=== PATIENT | female | born 1995 | race Caucasian/White ===

== ENCOUNTER 2025-08-18 08:50 | Inpatient (IN) | payer MEDICAID ==
[2025-08-18] VITALS (17 sets, daily range): BP systolic 102–133; BP diastolic 55–89; PULSE 68–101; RESP 17–31; TEMP 37.5856–37.6; O2SAT 97–99
[~2025-08-18] VITALS: Ht 167.6 cm; Wt 70.8 kg
[2025-08-18] MEDS: SODIUM CHLORIDE 0.9% (SEPSIS BOLUS) IV ONE (09:42)
[2025-08-18] MEDS: CEFTRIAXONE 1GM/50ML 50 ML IV ONE (09:42)
[2025-08-18] MEDS: ACETAMINOPHEN 500MG TABLET PO ONE (09:45)
[2025-08-18 09:58] LABS: BASOPHILS % 0.7 % (0.0-2.0); EOSINOPHILS % 0.1 % (0.0-5.0); HEMATOCRIT. 35.3 % (36.0-48.0); HEMOGLOBIN. 11.4 g/dL (12.0-16.0); LYMPHOCYTES % 10.4 % (20.0-50.0); MEAN PLATELET VOLUME 8.1 fl (7.4-10.4); MONOCYTES % 9.3 % (2.0-8.0); NEUTROPHILS % 79.5 % (40.0-76.0); PLATELET 194 x1000/uL (130-400); RED BLOOD CELL COUNT 4.55 mill/uL (4.2-5.4); RED CELL DISTRIBUTION WIDTH 14.9 % (11.6-14.6)
[2025-08-18 10:08] LABS: INR 1.1
[2025-08-18 10:11] LABS: CREATININE 0.8 mg/dL (0.6-1.0); UREA NITROGEN BLOOD 9 mg/dL (9-23)
[2025-08-18 10:12] LABS: ETHANOL BLOOD < 10 mg/dL (<10); HCG SCREEN NEGATIVE
[2025-08-18 10:13] LABS: ASPARTATE AMINOTRANSFERASE 19 IU/L (<34); BILIRUBIN DIRECT 0.2 mg/dL (<=3.0); BILIRUBIN TOTAL 0.6 mg/dL (0.1-1.0); PROTEIN TOTAL 7.4 g/dL (6.0-8.3)
[2025-08-18] MEDS: POTASSIUM CHLORIDE 20MEQ/PACKET PO SCH (11:00)
[2025-08-18 11:01] LABS: CLARITY URINE CLEAR (CLEAR); COLOR URINE YELLOW (YELLOW); GLUCOSE URINE NEGATIVE (NEGATIVE); KETONES URINE NEGATIVE (NEGATIVE); LEUKOCYTE ESTERASE URINE 2+ (NEGATIVE); NITRITE URINE NEGATIVE (NEGATIVE); OCCULT BLOOD URINE TRACE (NEGATIVE); PH URINE 6.5 (4.5-8.0); PROTEIN URINE NEGATIVE (NEGATIVE); SPECIFIC GRAVITY URINE 1.011 (1.005-1.030); UROBILINOGEN URINE 0.2 E.U./dL (0.2-1.0)
[2025-08-18] MEDS: IBUPROFEN 800MG TABLET PO ONE (11:01)
[2025-08-18 11:27] LABS: BACTERIA URINE 1+; RBC URINE 0-2 /hpf (0-2); SQUAMOUS EPITHELIAL CELL URINE 2+ /lpf (RARE/1+); YEAST URINE NONE SEEN
[2025-08-18 11:29] LABS: INFLUENZA TYPE A Presumptive Negative (Pres. Neg.); INFLUENZA TYPE B Presumptive Negative (Pres. Neg.)
[2025-08-18 11:30] LABS: RESPIRATORY SYNCYTIAL VIRUS Not Detected (Not Detectd)
[2025-08-18] MEDS ORDERED: SULF1TAB48 MT (12:31)
[2025-08-18] MEDS ORDERED: ACET-2708 MT (12:32)
[2025-08-18] MEDS: SODIUM CHLORIDE 0.9% 1,000 ML IV ONE (13:51)
[2025-08-18] MEDS: NOREPINEPHRINE 8MG/250ML PMX 250 ML IV ONE (15:18)
[2025-08-18] MEDS ORDERED: LACTATED RINGERS 1,000 ML IV SCH ×2 (16:00→16:45)
[2025-08-18 17:26] LABS: BASOPHILS % 0.6 % (0.0-2.0); EOSINOPHILS % 0.1 % (0.0-5.0); HEMATOCRIT. 31.9 % (36.0-48.0); HEMOGLOBIN. 10.1 g/dL (12.0-16.0); LYMPHOCYTES % 21.5 % (20.0-50.0); MEAN PLATELET VOLUME 8.2 fl (7.4-10.4); MONOCYTES % 7.0 % (2.0-8.0); NEUTROPHILS % 70.8 % (40.0-76.0); PLATELET 167 x1000/uL (130-400); RED BLOOD CELL COUNT 3.92 mill/uL (4.2-5.4); RED CELL DISTRIBUTION WIDTH 14.4 % (11.6-14.6)
[2025-08-18 17:45] LABS: T4 FREE 0.88 ng/dL (0.89-1.76)
[2025-08-18 21:27] LABS: PLATELET 182 x1000/uL (130-400); RED BLOOD CELL COUNT 3.93 mill/uL (4.2-5.4); RED CELL DISTRIBUTION WIDTH 14.5 % (11.6-14.6)
[2025-08-18] MEDS ORDERED: NOREPINEPHRINE 8MG/250ML PMX 250 ML IV PRN (21:28)
[2025-08-18 21:41] LABS: CREATININE 0.7 mg/dL (0.6-1.0)
[2025-08-18 21:42] LABS: UREA NITROGEN BLOOD 7 mg/dL (9-23)
[2025-08-18] MEDS: PIPERACILLIN/TAZO 3.375G/50ML 50 ML IV SCH (21:56)
[2025-08-18] MEDS: ACETAMINOPHEN 650MG/20.3ML UDC PO PRN (21:56)
[2025-08-18] MEDS: SODIUM CHLORIDE 0.9% 1,000 ML IV SCH (21:57)
[2025-08-19] VITALS (75 sets, daily range): BP systolic 74–123; BP diastolic 43–76; PULSE 63–91; RESP 16–28; TEMP 36.2–37.8; O2SAT 94–100
[2025-08-19 05:46] LABS: PLATELET 164 x1000/uL (130-400); RED BLOOD CELL COUNT 4.23 mill/uL (4.2-5.4); RED CELL DISTRIBUTION WIDTH 14.7 % (11.6-14.6)
[2025-08-19 05:56] LABS: CREATININE 0.5 mg/dL (0.6-1.0); UREA NITROGEN BLOOD < 5 mg/dL (9-23)
[2025-08-19] MEDS: PANTOPRAZOLE SODIUM 40 MG/VIAL IV SCH ×2 (08:45→09:30)
[2025-08-19] MEDS: CEFTRIAXONE 1GM/50ML 50 ML IV SCH (08:45)
[2025-08-19] MEDS: ENOXAPARIN 40MG/0.4ML SYR SUBCUT SCH (08:45)
[2025-08-19] MEDS ORDERED: SERT25TA74 PO (08:52)
[2025-08-19] MEDS ORDERED: ERGO1250 PO (08:52)
[2025-08-19] MEDS: SERTRALINE HCL 25MG TABLET PO SCH (09:39)
[2025-08-19] MEDS: ERGOCALCIFEROL 50000UNITS CAPSULE PO SCH (11:05)
[2025-08-19] MEDS: VANCOMYCIN 1.25GM/250ML IV SCH (11:18)
[2025-08-19] MEDS: ONDANSETRON HCL 4MG/2ML INJ IV PRN (11:26)
[2025-08-19] MEDS: LEVOTHYROXINE SODIUM 75MCG TABLET PO SCH (13:36)
[2025-08-19] MEDS: ACYCLOVIR INJ 500 MG in DEXT 5% WATER 100 ML IV SCH (18:20)
[2025-08-19] MEDS ORDERED: NALOXONE HCL 0.4MG/ML VIAL IV PRN (21:30)
[2025-08-19] MEDS ORDERED: ZOLPIDEM TARTRATE 5MG TABLET PO PRN (21:30)
[2025-08-19] MEDS: HYDROCODONE/ACETAMINOPHEN 5/325MG TABLET PO PRN (21:49)
[2025-08-19] MEDS: VANCOMYCIN 1GM/200ML PMX (BAXTER) IV SCH (22:10)
[2025-08-20] VITALS (9 sets, daily range): BP systolic 102–110; BP diastolic 51–61; PULSE 73–98; RESP 18–20; TEMP 36.1–39; O2SAT 97–100
[2025-08-20] MEDS: ACETAMINOPHEN 325MG TABLET PO PRN (04:37)
[2025-08-20 06:37] LABS: BASOPHILS % 0.6 % (0.0-2.0); EOSINOPHILS % 0.0 % (0.0-5.0); HEMATOCRIT. 31.1 % (36.0-48.0); HEMOGLOBIN. 10.2 g/dL (12.0-16.0); LYMPHOCYTES % 16.4 % (20.0-50.0); MEAN PLATELET VOLUME 8.8 fl (7.4-10.4); MONOCYTES % 9.4 % (2.0-8.0); NEUTROPHILS % 73.6 % (40.0-76.0); PLATELET 168 x1000/uL (130-400); RED BLOOD CELL COUNT 4.01 mill/uL (4.2-5.4); RED CELL DISTRIBUTION WIDTH 14.3 % (11.6-14.6)
[2025-08-20 06:42] LABS: CREATININE 0.6 mg/dL (0.6-1.0)
[2025-08-20 06:43] LABS: UREA NITROGEN BLOOD < 5 mg/dL (9-23)
[2025-08-20] MEDS: POTASSIUM CHLORIDE 20MEQ TABLET SR PO NR (13:34)
[2025-08-21] VITALS: BP 107/47; PULSE 79; RESP 18; TEMP 37.7; O2SAT 97
[2025-08-21 03:39] LABS: *AMPHETAMINES SCREEN URINE NEGATIVE (NEGATIVE); *BARBITURATES SCREEN URINE NEGATIVE (NEGATIVE); *BENZODIAZEPINES SCREEN URINE NEGATIVE (NEGATIVE); *COCAINE SCREEN URINE NEGATIVE (NEGATIVE)
[2025-08-21 03:40] LABS: CANNABINOID URINE SCREEN NEGATIVE (NEGATIVE); ECSTASY MDMA SCREEN URINE NEGATIVE (NEGATIVE); METHADONE URINE SCREEN NEGATIVE (NEGATIVE); OPIATES URINE SCREEN PRESUMPTIVE POSITIVE (NEGATIVE); PHENCYCLIDINE URINE SCREEN NEGATIVE (NEGATIVE)
[2025-08-21 04:00] VITALS: BP 113/65; PULSE 87; RESP 20; TEMP 37.3; O2SAT 98
[2025-08-21 08:00] VITALS: BP_SYST 100; BP_SYST 101; BP_DIAS 50; BP_DIAS 64; PULSE 65; RESP 18; RESP 20; TEMP 36.3; O2SAT 97; O2SAT 99
[2025-08-21 08:09] LABS: CREATININE 0.6 mg/dL (0.6-1.0); UREA NITROGEN BLOOD < 5 mg/dL (9-23)
[2025-08-21 12:00] VITALS: BP 101/64; PULSE 78; RESP 20; TEMP 36.5; O2SAT 99
[2025-08-21] MEDS ORDERED: NALOXONE HCL 0.4MG/ML VIAL IV PRN (13:45)
[2025-08-21] MEDS: POTASSIUM CHLORIDE 20MEQ TABLET SR PO NR (14:52)
[2025-08-21] MEDS: HYDROCODONE/ACETAMINOPHEN 10/325MG TABLET PO PRN (14:53)
[2025-08-21 16:00] VITALS: BP 105/52; PULSE 69; RESP 18; TEMP 36.8; O2SAT 98
[2025-08-21 20:00] VITALS: BP 110/49; PULSE 81; RESP 18; TEMP 37; O2SAT 98
[2025-08-22] VITALS (7 sets, daily range): BP systolic 98–110; BP diastolic 47–59; PULSE 67–90; RESP 18–20; TEMP 36.6–37.3; O2SAT 96–99
[2025-08-22 07:52] LABS: BASOPHILS % 0.8 % (0.0-2.0); EOSINOPHILS % 0.1 % (0.0-5.0); HEMATOCRIT. 30.8 % (36.0-48.0); HEMOGLOBIN. 9.9 g/dL (12.0-16.0); LYMPHOCYTES % 22.4 % (20.0-50.0); MEAN PLATELET VOLUME 8.2 fl (7.4-10.4); MONOCYTES % 7.8 % (2.0-8.0); NEUTROPHILS % 68.9 % (40.0-76.0); PLATELET 155 x1000/uL (130-400); RED BLOOD CELL COUNT 3.90 mill/uL (4.2-5.4); RED CELL DISTRIBUTION WIDTH 14.6 % (11.6-14.6)
[2025-08-22 08:06] LABS: CREATININE 0.6 mg/dL (0.6-1.0)
[2025-08-22 08:08] LABS: UREA NITROGEN BLOOD < 5 mg/dL (9-23)
[2025-08-22] MEDS ORDERED: LIDOCAINE HCL 1% 10 MG/ML 10ML VIAL ONE (09:14)
[2025-08-22 10:58] LABS: CSF TOTAL VOLUME 12.0 mL
[2025-08-22 12:10] LABS: CSF APPEARANCE CLEAR, COLORLESS (CLEAR)
[2025-08-22 13:45] LABS: GLUCOSE CSF 66 mg/dL (41-75)
[2025-08-23 04:00] VITALS: BP 105/52; PULSE 74; RESP 19; TEMP 37.4; O2SAT 96
[2025-08-23 08:00] VITALS: BP 95/50; PULSE 70; RESP 18; TEMP 36.5; O2SAT 95
[2025-08-23 11:55] VITALS: BP 93/40; PULSE 73; RESP 19; TEMP 36.5; O2SAT 98
[2025-08-23 16:12] VITALS: BP 99/65; PULSE 61; RESP 18; TEMP 36.5; O2SAT 98
[2025-08-23 20:16] VITALS: BP 98/50; PULSE 66; RESP 18; TEMP 36.7; O2SAT 98
[2025-08-23 23:47] VITALS: BP 105/57; PULSE 59; RESP 18; TEMP 36.4; O2SAT 98
[2025-08-24 04:26] VITALS: BP 118/74; PULSE 72; RESP 18; TEMP 36.5; O2SAT 98
[2025-08-24 08:00] VITALS: BP 101/58; PULSE 65; RESP 20; TEMP 36.4; O2SAT 97
[2025-08-24] MEDS: POLYETHYLENE GLYCOL 3350 (17GM) 1 DOSE PACK PO SCH (10:51)
[2025-08-24 12:00] VITALS: BP 97/48; PULSE 71; RESP 20; TEMP 36.7; O2SAT 95
[2025-08-24 12:37] LABS: BASOPHILS % 0.5 % (0.0-2.0); EOSINOPHILS % 0.5 % (0.0-5.0); HEMATOCRIT. 30.2 % (36.0-48.0); HEMOGLOBIN. 9.8 g/dL (12.0-16.0); LYMPHOCYTES % 25.7 % (20.0-50.0); MEAN PLATELET VOLUME 7.9 fl (7.4-10.4); MONOCYTES % 6.2 % (2.0-8.0); NEUTROPHILS % 67.1 % (40.0-76.0); PLATELET 209 x1000/uL (130-400); RED BLOOD CELL COUNT 3.91 mill/uL (4.2-5.4); RED CELL DISTRIBUTION WIDTH 14.8 % (11.6-14.6)
[2025-08-24 13:33] LABS: CREATININE 0.5 mg/dL (0.6-1.0); UREA NITROGEN BLOOD < 5 mg/dL (9-23)
[2025-08-24 16:00] VITALS: BP 93/43; PULSE 84; RESP 18; TEMP 36.7; O2SAT 97
[2025-08-24 20:00] VITALS: BP 99/55; PULSE 74; RESP 19; TEMP 36.8; O2SAT 98
[2025-08-24] MEDS: SENNOSIDES/DOCUSATE SOD 8.6/50MG TABLET PO SCH (20:48)
[2025-08-25] VITALS: BP 92/54; PULSE 60; RESP 20; TEMP 36.7; O2SAT 96
[2025-08-25 04:00] VITALS: BP 100/51; PULSE 63; RESP 19; TEMP 36.7; O2SAT 96
[2025-08-25 08:00] VITALS: BP 104/55; PULSE 58; RESP 20; TEMP 36.7; O2SAT 98
[2025-08-25 12:00] VITALS: BP 98/51; PULSE 68; RESP 18; TEMP 36.3; O2SAT 99
[2025-08-25] MEDS: ASPIRIN/ACETAMINOPHEN/CAFFEINE 250/250/65MG TABLET PO PRN (14:05)
[2025-08-25 16:00] VITALS: BP_SYST 102; BP_SYST 95; BP_DIAS 53; BP_DIAS 61; PULSE 61; PULSE 70; RESP 20; TEMP 36.7; TEMP 36.8; O2SAT 96; O2SAT 99
[2025-08-25 20:00] VITALS: BP 99/55; PULSE 66; RESP 18; TEMP 36.5; O2SAT 98
[2025-08-26] VITALS: BP 100/58; PULSE 63; RESP 18; TEMP 36.6; O2SAT 98
[2025-08-26 04:00] VITALS: BP 100/50; PULSE 68; RESP 18; TEMP 36.5; O2SAT 97
[2025-08-26 08:00] VITALS: BP 100/50; PULSE 70; RESP 20; TEMP 36.6; O2SAT 98
[2025-08-26 12:00] VITALS: BP 101/50; PULSE 70; RESP 18; TEMP 36.6; O2SAT 98
[2025-08-26 13:10] LABS: WEST NILE VIRUS CSF IGG Negative (Negative); WEST NILE VIRUS CSF IGM Negative (Negative)
[2025-08-26 16:00] VITALS: BP 102/60; PULSE 70; RESP 18; TEMP 36.6; O2SAT 98
[2025-08-26] MEDS ORDERED: ASPI1TAB8 PO (16:53)
[2025-08-26 20:00] VITALS: BP 100/52; PULSE 65; RESP 18; TEMP 36.5; O2SAT 100
[2025-08-27] VITALS: BP 102/46; PULSE 70; RESP 18; TEMP 36.6; O2SAT 98
[2025-08-27 04:00] VITALS: BP 104/61; PULSE 62; RESP 18; TEMP 36.3; O2SAT 99
[2025-08-27 08:00] VITALS: BP 91/50; PULSE 65; RESP 18; TEMP 37.1
[2025-08-27 11:05] VITALS: BP 101/65; PULSE 65; RESP 16; TEMP 98.2
[2025-08-27 12:00] VITALS: BP 100/57; PULSE 65; RESP 18; TEMP 37.1; O2SAT 98
== END 2025-08-27 12:00 | disposition home or self-care (01) | DRG 720 ==
LOC: ER 08:50 → EDBEDREQ 14:48 → MICUSO 15:30 → EDBEDREQ 15:30 → EDBEDREQTM 15:30 → 7WST 08-19 19:55
PROVIDERS: ADMIT Internal Medicine; ATTEND Internal Medicine
PROC: 009U3ZX Drainage of Spinal Canal, Percutaneous Approach, Diagnostic (ICD-10-PCS; principal; 2025-08-22)
DX: A41.89 Other specified sepsis (principal); R65.21 Severe sepsis with septic shock; E87.20 Acidosis, unspecified; E83.51 Hypocalcemia; Z20.822 Contact with and (suspected) exposure to COVID-19; N39.0 Urinary tract infection, site not specified; D50.9 Iron deficiency anemia, unspecified; E87.6 Hypokalemia; E03.9 Hypothyroidism, unspecified
CPT/HCPCS: 36415; 62328; 70551; 71045; 74176; 80048; 80076; 80202; 80305; 80320; 81003; 82945; 82962; 83605; 84145; 84157; 84439; 84443; 84703; 85025; 85027; 86788; 86789; 87015; 87045; 87070; 87420; 87426; 87427; 87449; 87493; 87804; 87899; 93005; 96365; 96366; 96367; 96368; 97162; 99291; J0133; J0696; J1650; J2003; J2405; J2470; J2543; J3373; J3490; J7030; J7060; G0480